=== PATIENT | female | born 2000 | race American Indian/Alaskan Native ===

== ENCOUNTER 2020-08-13 01:05 | Emergency (ER) | payer MEDICAID ==
[2020-08-13] MEDS ORDERED: methylPREDNISolone Sod Succinate 125 MG/2 ML INJ IV ONE (01:30)
[2020-08-13] MEDS ORDERED: MAGNESIUM SULFATE 2 GM/50 ML BAG IV ONE (01:30)
[2020-08-13] MEDS ORDERED: IPRATROPIUM 0.02% NEBU 2.5 ML IH ONE (01:30)
[2020-08-13] MEDS ORDERED: LEVALBUTEROL 0.63 MG/3 ML NEBU IH ONE (01:32)
--- NOTE | 2020-08-13 01:36 | Emergency Department Report ---
ED Asthma HPI - General Chief Complaint: Dyspnea/Respdistress Stated Complaint: KRIS Time Seen by Provider: 08/13/20 01:30 Source: patient, EMS Mode of arrival: Stretcher Limitations: No Limitations - History of Present Illness Initial Comments: Patient is 19 years old female with history of asthma. Patient brought to the emergency room via EMS from home for evaluation of asthma attack. EMS stated that patient initial oxygen saturation was 79% on room air improved to 96% on 2L. EMS reported that evaluated the patient yesterday and she received shade atment at home and she felt better. Patient currently denying any fever or chills. No chest pain. Patient stated that she has been taking her albuterol with no improvement. MD Complaint: "asthma attack", shortness of breath, wheezing -: Sudden, Last night Asthma History: childhood onset Severity: moderate Context: recent URI Associated Symptoms: productive cough Treatments Prior to Arrival: inhaled bronchodilator - Related Data Current Asthma Therapy: inhaled bronchodilator Allergies Allergy/AdvReac Type Severity Reaction Status Date / Time No Known Allergies Allergy Unverified 08/13/20 02:06 ED Review of Systems ROS: Stated complaint: KRIS Other details as noted in HPI Comment: All other systems reviewed and negative Constitutional: denies: chills, fever Respiratory: cough, shortness of breath, SOB with exertion, SOB at rest, wheezing. denies: orthopnea Cardiovascular: denies: chest pain, palpitations Gastrointestinal: denies: abdominal pain, nausea, vomiting, diarrhea, constipation, hematemesis, melena, hematochezia Musculoskeletal: denies: back pain Neurological: denies: headache, weakness ED Past Medical Hx - Past Medical History Previous Medical History?: Yes Hx Asthma: Yes - Surgical History Past Surgical History?: No - Social History Smoking Status: Never Smoker ED Physical Exam - General Limitations: No Limitations General appearance: alert, in distress - Head Head exam: Present: atraumatic, normocephalic, normal inspection - Eye Eye exam: Present: normal appearance, PERRL - ENT ENT exam: Present: normal exam, normal orophraynx, mucous membranes moist - Neck Neck exam: Present: normal inspection, full ROM. Absent: tenderness, meningismus - Respiratory Respiratory exam: Present: respiratory distress, wheezes, rhonchi. Absent: rales, accessory muscle use, decreased breath sounds, prolonged expiratory - Cardiovascular Cardiovascular Exam: Present: regular rate, normal rhythm, normal heart sounds - GI/Abdominal GI/Abdominal exam: Present: soft, normal bowel sounds. Absent: distended, tenderness, guarding, rebound, rigid, organomegaly, mass, bruit, pulsatile mass, hernia - Extremities Exam Extremities exam: Present: normal inspection, full ROM, normal capillary refill. Absent: tenderness - Back Exam Back exam: Present: normal inspection, full ROM. Absent: CVA tenderness (R), CVA tenderness (L) - Neurological Exam Neurological exam: Present: alert, oriented X3, CN II-XII intact, normal gait, reflexes normal. Absent: motor sensory deficit - Skin Skin exam: Present: warm, intact, normal color ED Course Vital Signs 08/13/20 08/13/20 08/13/20 01:18 01:25 01:30 Pulse Rate 86 80 Pulse Rate [ Bilateral] Pulse Rate [ Right] Respiratory 16 20 13 Rate Respiratory Rate [Bilateral ] Respiratory Rate [Right] Blood Pressure 145/81 O2 Sat by Pulse 92 96 Oximetry 08/13/20 08/13/20 01:46 02:23 Pulse Rate 77 Pulse Rate [ 81 Bilateral] Pulse Rate [ 90 Right] Respiratory 16 Rate Respiratory 12 Rate [Bilateral ] Respiratory 20 Rate [Right] Blood Pressure 129/68 O2 Sat by Pulse 98 Oximetry ED Medical Decision Making - Lab Data Result diagrams: 08/13/20 01:38 08/13/20 01:38 - Radiology Data Radiology results: report reviewed - Medical Decision Making Patient is 19 years old female with history of asthma. Patient brought to the emergency room via EMS from home for evaluation of asthma attack. EMS stated that patient initial oxygen saturation was 79% on room air improved to 96% on 2L. EMS reported that evaluated the patient yesterday and she received treatment at home and she felt better. Patient currently denying any fever or chills. No chest pain. Patient stated that she has been taking her albuterol with no improvement. Patient received Xopenex, Atrovent, Solu-Medrol magnesium sulfate. Patient stated that she is feeling much better. On exam there is no wheezing. Labs reviewed and is unremarkable. Chest x-ray is negative for acute finding. Patient given prescription for prednisone and albuterol and advised to follow-up with her primary doctor in the next 2 to 3 days and to return to the ER if she develop any new symptoms. Critical care attestation.: If time is entered above; I have spent that time in minutes in the direct care of this critically ill patient, excluding procedure time. ED Disposition Clinical Impression: Acute asthma exacerbation Disposition: TO HOME OR SELFCARE Is pt being admited?: No Condition: Stable Instructions: Asthma, Adult Referrals: PRIMARY CARE, [Primary Care Provider] - 3-5 Days
[2020-08-13 02:03] LABS: Basophils % (Auto) 0.7 % (0.0-1.8); Eosinophils # (Auto) 0.5 K/mm3 (0.0-0.4); Eosinophils % (Auto) 12.8 % (0.0-4.3); Hematocrit 36.5 % (30.3-42.9); Hemoglobin 12.2 gm/dl (10.1-14.3); Lymphocytes # (Auto) 1.4 K/mm3 (1.2-5.4); Lymphocytes % (Auto) 32.6 % (13.4-35.0); Mean Corpuscular HGB Conc 33 % (30-34); Mean Corpuscular Volume 92 fl (79-97); Monocytes # (Auto) 0.4 K/mm3 (0.0-0.8); Monocytes % (Auto) 10.1 % (0.0-7.3); Platelet Count 171 K/mm3 (140-440); Red Blood Count 3.99 M/mm3 (3.65-5.03); Red Cell Distribution Width 13.5 % (13.2-15.2)
--- NOTE | 2020-08-13 02:28 | XRay Report ---
XR chest 1V ap INDICATION / CLINICAL INFORMATION: Dyspnea. COMPARISON: None available. FINDINGS: SUPPORT DEVICES: None. HEART /PULMONARY VASCULATURE: No significant abnormality. LUNGS / PLEURA: No significant pulmonary or pleural abnormality. No pneumothorax. ADDITIONAL FINDINGS: No significant additional findings. IMPRESSION: 1. No acute findings. Signer Name: Monico Castillo MD Signed: 08/13/2020 2:24 AM Workstation Name: [id number]
[2020-08-13 02:30] LABS: BUN/Creatinine Ratio 13; Blood Urea Nitrogen 13 mg/dL (7-17); Calcium 8.8 mg/dL (8.4-10.2); Hemolysis Index 13
[2020-08-13 04:09] VITALS: BP 116/65
== END 2020-08-13 04:13 | disposition home or self-care (01) ==
LOC: ED 01:05
DX: J45.901 Unspecified asthma with (acute) exacerbation (principal)
CPT/HCPCS: 36415; 71045; 80048; 85025; 94640; 96365; 96375; 99284; J2930; J3475; 94644